=== PATIENT | female | born 1980 | race Caucasian/White ===

== ENCOUNTER 2019-03-25 11:19 | Outpatient (REF) | payer OTHER, SELFPAY ==
[2019-03-25 21:04] LABS: Calculated LDL 81 mg/dL; Cholesterol 179 mg/dL (<200); HDL Cholesterol 88 mg/dL (40-60); Triglyceride 50 mg/dL (<150)
== END 2019-03-25 11:39 ==
LOC: NCHCN 11:19
PROVIDERS: Visit Provider Registered Nurse
DX: Z00.00 Encounter for general adult medical examination without abnormal findings (principal); Z13.220 Encounter for screening for lipoid disorders
CPT/HCPCS: 80061

== ENCOUNTER 2019-04-23 22:31 | Outpatient (REF) | payer OTHER, SELFPAY ==
--- NOTE | 2019-04-23 16:00 | PAPFT_PTH ---
PATIENT: Dayanna Puga [facility] U#:[id number] AGE/SX: 38/F ROOM: RE04/23/[address]: Dayanna Nava : 1980 BED: DIS: 04/23/2019 SPEC #: [id number] RECD: 04/24/19 12:37 STATUS: VENESSA REQ #: [id number] KEMAR: 04/23/19 16:[address]: Dayanna Nava DEPT: [facility] Cytology RECD BY: Mariaa Bejarano ENTERED: 04/24/19 12:37 SP TYPE: PAPFT OTHR DR: Devyn Read Tissues: 1 - CX/ENDOCX FOR PAP SMEARS Procedures: PAP THIN PREP/[facility] Screening HPV DNA PROBE Comments: [id number]
== END 2019-04-23 22:51 ==
LOC: NCHCN 22:31
PROVIDERS: PCP Dentist; Visit Provider Registered Nurse
DX: Z12.4 Encounter for screening for malignant neoplasm of cervix (principal)
CPT/HCPCS: 88142; 87624

== ENCOUNTER 2020-09-27 16:55 | Outpatient (REF) | payer OTHER, SELFPAY ==
[2020-09-27 21:54] LABS: HCT 38.7 % (36.0-46.0); HGB 12.8 g/dL (11.2-15.7); MCH 30.6 pg (27.0-33.0); MCHC 33.1 % (32.0-36.0); MCV 92.6 fL (80-95); MPV 10.1 fL (8.0-11.0); Platelet Count 230 10^3/uL (130-400); RBC 4.18 10^6/uL (3.93-5.22); RDW 13.1 % (11.7-14.6); RDW-SD 44.3 fL; WBC 7.74 10^3/uL (4.4-10.8)
[2020-09-27 22:24] LABS: ALT 24 U/L (14-59); AST 22 U/L (15-37); Alkaline Phosphatase 55 U/L (46-116); Anion Gap 11.7 mmol/L (3-11); BUN 13 mg/dL (7-18); Bilirubin, Total 0.5 mg/dL (0.2-1.0); CO2 25.3 mmol/L (21.0-32.0); CREATININE 0.8 mg/dL (0.55-1.02); Chloride 104 mmol/L (98-107); Glucose 96 mg/dL (74-106); Potassium 4.3 mmol/L (3.5-5.1); Sodium 141 mmol/L (136-145); TSH (W/Ref FT4) 2.06 uIU/mL (0.36-3.74); Total Protein 7.5 g/dL (6.4-8.2)
== END 2020-09-27 16:56 | disposition home or self-care (01) ==
LOC: NCHCN 16:55
PROVIDERS: PCP Dentist; Visit Provider Nurse Practitioner Family
DX: Z00.00 Encounter for general adult medical examination without abnormal findings (principal); Z13.29 Encounter for screening for other suspected endocrine disorder; Z13.228 Encounter for screening for other metabolic disorders
CPT/HCPCS: 80053; 85027; 84443

== ENCOUNTER 2024-03-25 12:13 | Outpatient (REF) | payer BC, SELFPAY ==
--- NOTE | 2024-03-25 10:00 | PAPFT_PTH ---
PATIENT: Dayanna Puga LOC: [facility] U#:[id number] AGE/SX: 43/F ROOM: RE03/25/[address]: Caro Cotto : 1980 BED: DIS: 03/25/2024 SPEC #: [id number] RECD: 03/25/24 17:34 STATUS: VENESSA REQ #: [id number] KEMAR: 03/25/24 10:[address]: Caro Cotto DEPT: [facility] Cytology RECD BY: Mariaa Bejarano ENTERED: 03/25/24 17:34 SP TYPE: PAPFT OTHR DR: Devyn Read Tissues: 1 - CX/ENDOCX FOR PAP SMEARS Procedures: PAP THIN PREP/[facility] Screening HPV DNA PROBE Comments: [id number] (HPV 16 & 18/45) (CHLAMYDIA/GC)
[2024-03-25 14:37] LABS: MCH 31.1 pg (27.0-33.0); MCHC 33.3 % (32.0-36.0); MCV 93 fL (80-95); MPV 9.5 fL (8.0-11.0); Platelet Count 223 10^3/uL (130-400); RBC 4.18 10^6/uL (3.93-5.22); RDW 12.1 % (11.7-14.6); WBC 9.13 10^3/uL (4.4-10.8)
[2024-03-25 15:13] LABS: Anion Gap 10.9 mmol/L (3-11); BUN 19 mg/dL (7-18); CO2 25.1 mmol/L (21.0-32.0); CREATININE 0.8 mg/dL (0.55-1.02); Calcium 8.9 mg/dL (8.5-10.1); Chloride 103 mmol/L (98-107); Estimated GFR 94.28 (mL/min/1.73m2); Glucose 107 mg/dL (74-106); Potassium 3.4 mmol/L (3.5-5.1); Sodium 139 mmol/L (136-145); TSH (W/Ref FT4) 2.03 uIU/mL (0.36-3.74)
[2024-03-25 23:59] LABS: Hepatitis C Ab w Rflx HCV PCR Negative (Negative)
[2024-03-26 00:03] LABS: HIV-1/2 Ag & Ab Screen Negative (Negative)
[2024-03-26 11:48] LABS: Chlamydia Result Negative (Negative); GC Result Negative (Negative)
== END 2024-03-25 12:14 | disposition home or self-care (01) ==
LOC: NCHCN 12:13
PROVIDERS: PCP Dentist; Visit Provider Nurse Practitioner Family
DX: Z11.51 Encounter for screening for human papillomavirus (HPV) (principal); Z01.419 Encounter for gynecological examination (general) (routine) without abnormal findings; N93.9 Abnormal uterine and vaginal bleeding, unspecified; Z11.3 Encounter for screening for infections with a predominantly sexual mode of transmission
CPT/HCPCS: 80048; 85027; 86803; 87389; 87491; 87591; 88142; 84443; 87624